=== PATIENT | male | born 1985 | race Caucasian/White ===

== ENCOUNTER 2017-03-20 20:46 | Emergency (ER) | payer BC ==
[~2017-03-20] VITALS: Ht 170.2 cm; Wt 79.5 kg
[~2017-03-20 20:46] MED LIST: ALBU17AE27 IH; RIVA15T PO; RIVA20TA PO
[2017-03-20] MEDS ORDERED: ALBU8HFA IH (20:57)
[2017-03-20 21:40] VITALS: BP 134/78
== END 2017-03-20 23:40 | disposition home or self-care (01) ==
LOC: EMS 20:47
DX: S46.912A Strain of unspecified muscle, fascia and tendon at shoulder and upper arm level, left arm, initial encounter (principal); J45.909 Unspecified asthma, uncomplicated; F12.90 Cannabis use, unspecified, uncomplicated; X58.XXXA Exposure to other specified factors, initial encounter; Y93.89 Activity, other specified; Y92.89 Other specified places as the place of occurrence of the external cause; Y99.8 Other external cause status
CPT/HCPCS: 99282